=== PATIENT | female | born 1945 | race Caucasian/White ===

== ENCOUNTER 2016-08-29 13:42 | Inpatient (IN) ==
[2016-08-29] MEDS ORDERED: NS 1,000 ML ONE (14:09)
[2016-08-29] MEDS ORDERED: NS 1,000 ML IV ONE ×2 (14:09→16:16)
[2016-08-29 14:44] LABS: URINE CULTURE NEEDED? NO; URINE MICRO REVIEW NEEDED? NO; URINE SOURCE CATH
[2016-08-29 14:44] LABS: MANUAL DIFF NEEDED? NO
[2016-08-29 14:54] LABS: BASO% 1.6 % (0.0-0.8); EOS% 7.8 % (0.0-10.0); HEMOGLOBIN 9.9 g/dL (12.0-16.0); LYMPH# 1.96 X1000 (1.2-3.4); LYMPH% 50.6 % (20.5-51.1); MCH 31.8 PG (27-31); MCHC 31.9 g/dL (33-37); MCV 99.7 FL (81-99); MONO# 0.42 X1000 (0.11-0.59); MONO% 10.9 % (1.7-9.3); NEUT% 29.1 % (42.2-75.2); PLT 142 X1000 (130-400); RBC 3.11 XMIL (4.2-5.4)
[2016-08-29 14:59] LABS: BILIRUBIN URINE NEGATIVE (NEGATIVE); BLOOD URINE NEGATIVE (NEGATIVE); COLOR YELLOW; GLUCOSE URINE NEGATIVE (NEGATIVE); LEUKOCYTES URINE NEGATIVE (NEGATIVE); NITRITE URINE NEGATIVE (NEGATIVE); PROTEIN URINE NEGATIVE (NEGATIVE); SP GRAVITY URINE 1.011; TURBIDITY URINE CLEAR (CLEAR); UROBILINOGEN URINE NORMAL (NORMAL)
[2016-08-29 15:01] LABS: UR EPITHELIAL CELLS <10 /HPF (<10); URINE BACTERIA NEGATIVE /HPF; URINE RBC <10 /HPF (<10); URINE WBC <10 /HPF (<10)
[2016-08-29] MEDS ORDERED: ATROPINE IV ONE (15:17)
[2016-08-29 15:27] LABS: UR AMPHETAMINES QUAL NONE DETECTED (NONE DETECT); UR BARBITUATES QUAL NONE DETECTED (NONE DETECT); UR BENZODIAZEPIN QUAL PRESUMPTIVE POSITIVE (NONE DETECT); UR CANNABINOIDS QUAL NONE DETECTED (NONE DETECT); UR COCAINE QUAL NONE DETECTED (NONE DETECT); UR METHADONE QUAL NONE DETECTED (NONE DETECT); UR OPIATES QUAL PRESUMPTIVE POSITIVE (NONE DETECT); UR OXYCODONE QUAL NONE DETECTED (NONE DETECT); UR PCP QUAL NONE DETECTED (NONE DETECT)
[2016-08-29] MEDS ORDERED: ATROPINE SYRINGE IV ONE (15:27)
[2016-08-29 15:35] LABS: CALCIUM 8.5 mg/dL (8.8-10.2); POTASSIUM 4.1 mmol/L (3.5-5.1); TOTAL BILIRUBIN 0.17 mg/dL (0.20-1.00); TOTAL PROTEIN 5.8 g/dL (6.3-8.3)
--- NOTE | 2016-08-29 16:52 | Diag Imaging Result Doc PS360 ---
EXAM: CT ABD/PELVIS W/ IV CONT ONLY HISTORY: back pAIN, HYPOTENSION TECHNIQUE: CT of the abdomen with intravenous contrast at 1 mm slices with parasagittal reconstruction COMMENT: There Is atelectatic change versus fibrosis in both lung bases. This appears slightly worse than on 01/25/2016. There is no evidence of abdominal aortic aneurysm. There are postsurgical changes in the lower lumbar spine and the pedicle screws produce some beam hardening artifact obscuring detail in the aorta however the mesenteric and renal arteries appear to be patent. There is a 1 mm calculus in the lower pole of the right kidney. There is some fullness the collecting systems bilaterally but more so on the right than the left. There is no evidence of ureterolithiasis. The urinary bladder is slightly distended. There is fluid in the small bowel and colon particularly the ascending colon where there is also fecal debris. There has apparently been previous appendectomy. There is also been previous cholecystectomy. The spleen and adrenal glands are within normal limits. There is no definite abnormality in the pancreas. Small bowel is not distended. CT of the pelvis with intravenous contrast: There is been hysterectomy. There is no evidence of free fluid masses or significant adenopathy. There is some diverticulosis in the sigmoid colon without evidence of diverticulitis. IMPRESSION: 1. Possibility of enterocolitis cannot be excluded. 2. Urinary retention in the bladder with some mild hydronephrosis bilaterally. 3. Minimal right nephrolithiasis. Electronically signed by Jordan Rosenthal 08/29/2016 4:50 PM
--- NOTE | 2016-08-29 17:09 | PROVIDER DOCUMENTATION ---
This chart was entered by Justina Mora Scribe, acting as scribe for Jimmy Moya MD. HPI-Musculoskeletal Pain/Inj - GENERAL Chief Complaint: Back Pain Stated Complaint: BACK PAIN Time Seen by Provider: 08/29/16 13:52 Source: patient - HX OF PRESENT ILLNESS-MUSKULOSKELTAL Nature of Presenting Problem: 71 Y/O F presents to the ER with the complain of lower back pain. pt states that she had back surgery in 2013 and since than her back is hurting. pt states that pain radiates to R leg and the pain is been worse since last 2 months. pt states that in from several days she has hard times standing and his morning she could not get out from bed so she came ER. pt denies any trauma or any fall that caused her pain. Onset/Duration: 5 days ago Timing: still present - FALL INJURY Location of Pain/Injury: reports: back Pain Radiation: reports: other (R leg) Review of Systems - Adult - REVIEW OF SYSTEMS - ADULT Constitutional: reports: no symptoms reported Eyes: reports: no symptoms reported Ears, Nose, Mouth & Throat: reports: no symptoms reported Cardiovascular: reports: no symptoms reported Respiratory: reports: no symptoms reported Gastrointestinal: reports: no symptoms reported Genitourinary: reports: no symptoms reported Musculoskeletal: reports: back pain. denies: joint pain, neck pain Integumentary: reports: no symptoms reported Neurological: reports: no symptoms reported Psychiatric: reports: no symptoms reported Endocrine: reports: no symptoms reported Hematologic/Lymphatic: reports: no symptoms reported Allergic/Immunologic: reports: no symptoms reported All Other Systems: Reviewed and Negative Past History - Adult - PAST MEDICAL HISTORY-ADULT Review of Records: reports: Old Records Reviewed, Nursing Assessment Review Major Childhood Illnesses: reports: denies history Cardiovascular: reports: HTN, heart valve problem (MVP), hyperlipidemia Respiratory: reports: denies history Gastrointestinal: reports: GERD Obstetrical/Gynecological: reports: denies history Genitourinary: reports: denies history Musculoskeletal: reports: chronic pain, fibromyalgia, neck/back injury, other ( scoliosis) Neurological: reports: denies history Psychiatric: reports: anxiety, depression Endocrine/Immune: reports: denies history Other Conditions: reports: denies history - PRIOR SURGERIES/PROCEDURES Surgical/Procedure History: reports: appendectomy, cholecystectomy, hysterectomy , orthopedic (extremity) (right shoulder ), back/neck (neck fusion and back Sx) , other (carpel tunnel; ) - PRIOR HOSPITALIZATIONS Prior Hospitalizations: reports: for other non-related - IMMUNIZATION STATUS Childhood Immunizations: See Nurse Assessment Flu Vaccine: See Nurse Assessment - FAMILY HISTORY Family History: reviewed, not pertinent Physical Exam-Injury Related - Physical Exam-Injury Related Initial Vital Signs Reviewed: Yes General Appearance: appears well, alert Eyes: PERRL/EOMI, pink conjunctivae Head, Ears, Nose, Mouth & Throat: moist mucous membranes, normal ENT inspection Neck: non-tender, full range of motion, supple Respiratory: no pleuratic chest pain, no respiratory distress Cardiovascular: normal peripheral pulses, regular rate, rhythm Abdominal Exam: soft, tenderness (RLQ and pelvis) Back Exam: no CVA tenderness, other (lower back pain) Extremity: other (R leg pain). negative: swelling Integumentary: normal color, warm/dry Neurologic: grossly normal, no motor/sensory deficits Psych/Mental Status: normal mood/affect, normal thought content, normal thought process, oriented x 3 Progress - PLAN OF CARE/RESULTS Progress/Plan/Lab Results: Vital Signs - 8 hr 08/29/16 13:46 08/29/16 14:08 08/29/16 14:32 Temperature 98.1 F Pulse Rate 53 L 52 L 71 Respiratory Rate 18 20 19 Blood Pressure 65/45 80/54 105/59 O2 Sat by Pulse Oximetry 94 L 94 L 92 L 08/29/16 15:43 08/29/16 16:55 Temperature Pulse Rate 69 67 Respiratory Rate 15 14 Blood Pressure 146/67 179/83 O2 Sat by Pulse Oximetry 97 98 Laboratory Results - last 24 hr 08/29/16 08/29/16 08/29/16 14:27 14:27 14:27 WBC 3.87 L RBC 3.11 L Hgb 9.9 L Hct 31.0 L MCV 99.7 H MCH 31.8 H MCHC 31.9 L RDW Std Deviation 13.2 Plt Count 142 MPV 11.0 H Immature Gran % (Auto) 0.0 Neut % (Auto) 29.1 L Lymph % (Auto) 50.6 Bay % (Auto) 10.9 H Eos % (Auto) 7.8 Baso % (Auto) 1.6 H Immature Gran # (Auto) 0.00 Neut # (Auto) 1.13 L Lymph # (Auto) 1.96 Bay # (Auto) 0.42 Eos # (Auto) 0.30 Baso # (Auto) 0.06 ESR 21 H Sodium 137 Potassium 4.1 Chloride 104 Carbon Dioxide 24 L Anion Gap 9 BUN 11 Creatinine 1.3 H Estimated GFR/1.73 m2 40 BUN/Creatinine Ratio 8 Glucose 109 H Calculated Osmolality 274 Calcium 8.5 L Total Bilirubin 0.17 L AST 47 H ALT 37 H Alkaline Phosphatase 77 Total Protein 5.8 L Albumin 3.0 L Globulin 2.8 Albumin/Globulin Ratio 1.1 Urine Source Urine Color Urine Turbidity Urine pH Ur Specific [place] Urine Protein Ur Glucose (Stick) Ur Ketones (Stick) Urine Blood Urine Nitrite Urine Bilirubin Urobilinogen Dipstick Urine Leukocytes Urine WBC (Auto) Urine RBC (Auto) U Epithel Cells (Auto) Urine Bacteria (Auto) Urine Opiates Screen Ur Oxycodone Screen Ur Methadone, Qual Ur Barbiturates Screen Ur Phencyclidine Scrn Ur Amphetamines Screen U Benzodiazepines Scrn Urine Cocaine Screen U Cannabinoids Screen 08/29/16 08/29/16 14:36 14:36 WBC RBC Hgb Hct MCV MCH MCHC RDW Std Deviation Plt Count MPV Immature Gran % (Auto) Neut % (Auto) Lymph % (Auto) Bay % (Auto) Eos % (Auto) Baso % (Auto) Immature Gran # (Auto) Neut # (Auto) Lymph # (Auto) Bay # (Auto) Eos # (Auto) Baso # (Auto) ESR Sodium Potassium Chloride Carbon Dioxide Anion Gap BUN Creatinine Estimated GFR/1.73 m2 BUN/Creatinine Ratio Glucose Calculated Osmolality Calcium Total Bilirubin AST ALT Alkaline Phosphatase Total Protein Albumin Globulin Albumin/Globulin Ratio Urine Source CATH Urine Color YELLOW Urine Turbidity CLEAR Urine pH 6.0 Ur Specific [place] 1.011 Urine Protein NEGATIVE Ur Glucose (Stick) NEGATIVE Ur Ketones (Stick) NEGATIVE Urine Blood NEGATIVE Urine Nitrite NEGATIVE Urine Bilirubin NEGATIVE Urobilinogen Dipstick NORMAL Urine Leukocytes NEGATIVE Urine WBC (Auto) <10 Urine RBC (Auto) <10 U Epithel Cells (Auto) <10 Urine Bacteria (Auto) NEGATIVE Urine Opiates Screen PRESUMPTIVE POSITIVE A Ur Oxycodone Screen NONE DETECTED Ur Methadone, Qual NONE DETECTED Ur Barbiturates Screen NONE DETECTED Ur Phencyclidine Scrn NONE DETECTED Ur Amphetamines Screen NONE DETECTED U Benzodiazepines Scrn PRESUMPTIVE POSITIVE A Urine Cocaine Screen NONE DETECTED U Cannabinoids Screen NONE DETECTED Orders Category Date Time Status Monitor Blood Pressure ORDERED Care 08/29/16 14:[address] ABD/PELVIS W/ IV CONT ONLY [CT] Stat Exams 08/29/16 15:41 Completed CBC WITH DIFF [HEME] Stat Lab 08/29/16 14:27 Completed COMPREHENSIVE METABOLIC PANEL [CHEM] Stat Lab 08/29/16 14:27 Completed SED RATE [HEME] Stat Lab 08/29/16 14:27 Completed URINALYSIS W/POSS RFLX CULT [URINALYSIS] Stat Lab 08/29/16 14:36 Completed URINE DRUG SCREEN Stat Lab 08/29/16 14:36 Completed 0.9% Sodium Chloride Inj [Ns] 1,000 ml Med 08/29/16 14:09 Discontinued .ROUTE As Directed 0.9% Sodium Chloride Inj [Ns] 1,000 ml Med 08/29/16 14:09 Discontinued IV 999 mls/hr 0.9% Sodium Chloride Inj [Ns] 1,000 ml Med 08/29/16 16:16 Active IV 999 mls/hr Atropine Med 08/29/16 15:17 Discontinued 1 mg IV NOW ONE Atropine Syringe Med 08/29/16 15:27 Discontinued 1 mg IV NOW ONE EKG [EKG] Stat Ther 08/29/16 13:51 Ordered Result Diagrams: 08/29/16 14:27 08/29/16 14:27 - EKG 1 Time of EKG reading by physician:: 14:07 EKG Read and Signed by:: Jimmy Moya EKG Interpretation (*Must complete 3 of following elements*): Normal Rate: 53 Rhythm: Sinus Bradycardia Comments: Sinus bradycardia otherwise normal ECG - CT/MRI 1 CT Study: Abdomen, Pelvis Impression: See EMR Report CT Results: possibility of entercolitis cant be exclued,urinary retention in bladder - CONSULTS/PCP/HOSPITALIST Notification #1 *Consult/PCP/Hospitalist*: Ruelas Time Discussed: 17:07 Consult Disposition: Will see in ED, Admit Departure - Departure Date of Disposition Decision: 08/29/16 Time of Disposition Decision: 17:07 DIAGNOSIS: Bradycardia Hypotension Qualifiers: Hypotension type: other hypotension type Qualified Code(s): I95.89 - Other hypotension Disposition: ADMITTED INPATIENT 09 Certified Medical Emergency: Emergent Condition: Good Referrals and Follow-Ups: Kerrie Cavazos CRNP [Primary Care Provider] - - Critical Care Note This patient required my direct & personal management of CC.: No This chart was documented by the indicated scribe, (Justina Mora Scribe) and accurately reflects the services I performed and decisions made by me, Jimmy Moya MD, as attested by the provider's signature.
--- NOTE | 2016-08-29 18:50 | HISTORY AND PHYSICAL ---
PRIMARY CARE PHYSICIAN: Dr. Rohith aKn. PAIN SPECIALIST: Dr. Thompson. CHIEF COMPLAINT: Lower back pain. HISTORY OF PRESENT ILLNESS: Mrs. Greenwood is a 71-year-old female with a history of chronic pain on chronic narcotic therapy, fibromyalgia, seizure disorder, and depression /anxiety, who presents to the ER with worsening back pain over the past few days. She has chronic pain and states that this is an exacerbation of that pain. It is unrelieved with her home narcotic therapy and she came to the ER today for evaluation. She denies any loss of bowel or bladder function. She denies any lower extremity numbness, tingling, or paralysis. She denies any abdominal pain, nausea, vomiting, diarrhea, no fever, chills, cough, or congestion. She came to the ER for evaluation and she was noted to be hypotensive and bradycardic. Initial blood pressure was 65/45 with a heart rate of 53. She was given some atropine and had a CT of the abdomen and pelvis done to rule out dissection. The CT report of the possibility of enteral colitis could not be excluded. There was urinary retention in the bladder with some mild hydronephrosis and minimal right nephrolithiasis. Her lab data shows some anemia, elevated LFTs, mild renal insufficiency, and some protein calorie malnutrition. UA did not show anything acute, and toxicology was positive for opiates and benzodiazepines. Since the administration of atropine and fluids her blood pressure has responded adequately and currently she is actually hypertensive with a blood pressure of 178/104, and a heart rate of 74. The physical exam does not reveal any neurologic deficits. Abdomen and pelvis is soft, without any acute findings. However, given her bradycardia and hypotension, we are going to bring her into the hospital and evaluate her more closely. PAST MEDICAL HISTORY: 1. Fibromyalgia. 2. Chronic back pain on narcotic therapy. 3. Depression and anxiety. 4. GERD. 5. Arthritis. 6. Seizure disorder. 7. History of psychosis. 8. History of pancreatitis. SURGICAL HISTORY: She had an appendectomy, cholecystectomy, hysterectomy, right shoulder surgery, lumbar and cervical spine surgery, carpal tunnel release. SOCIAL HISTORY: The patient lives at home with her grandchild whom she is raising. She denies any tobacco, alcohol, or drug use. She denies overuse of her medication. She is . FAMILY HISTORY: Father from [place] at 46. Mother from a stroke. ALLERGIES: Butorphanol and pregabalin. HOME MEDICATIONS: Lexapro 20 mg daily. Folic acid 1 mg daily. Neurontin 600 mg p.o. t.i.d., Ulysses 7.5 t.i.d.,Toradol 10 mg every 8 hours as needed, Protonix 20 mg b.i.d., Pravachol 20 mg at bedtime. REVIEW OF SYSTEMS: Fourteen-point review of systems obtained and found to be negative with the exception of the HPI. PHYSICAL EXAMINATION: VITAL SIGNS: Blood pressure is 178/104, heart rate 74, respiratory rate is 17, O2 saturation 96% on 2 L, temperature is 98.1 degrees. GENERAL: This is a somewhat chronically ill-appearing 71-year-old female, lying in hospital bed in no acute distress. NEUROLOGIC: The patient is awake, alert, and oriented. She follows commands without focal deficits. HEENT: Head is atraumatic and normocephalic. Her pupils are equal, round, and reactive to light. Her oral mucosa is dry. Trachea is midline. There is no JVD or carotid bruits. CHEST: Clear to auscultation bilaterally. CV: Regular rate and rhythm. S1-S2 is noted. No murmurs. GI: Soft, nondistended, nontender. Bowel sounds positive. EXTREMITIES: Without edema, clubbing or cyanosis. Pulses are palpable bilaterally. DIAGNOSTIC DATA: CT of the abdomen and pelvis, please see HPI. WBC 3.87, hemoglobin 9.9, hematocrit 31.0, MCV 99.7, platelet count 142,000. Sodium 137, potassium 4.1, chloride 104, CO2 24, anion gap 9, BUN 11, creatinine 1.3, glucose is 109, calcium 8.5, total bilirubin 0.17, AST 47, ALT 37, alkaline phosphatase 77, troponin is negative. Albumin is 3. TSH is 4. UA is negative. Toxicology is positive for benzodiazepines and opiates. ASSESSMENT AND PLAN: 1. Hypotension and bradycardia: Unclear as to the etiology. Patient denies any chest pain, there is no obvious source of infection. While the CT does raise the possibility of enterocolitis, patient denies diarrhea, abdominal pain, nausea, vomiting, or fever. We will hold off on antibiotics for now. Currently her hemodynamics are stable. She is actually a bit hypertensive. We will continue to monitor her overnight and see how she is doing in the morning. We will go ahead and trend her cardiac enzymes. 2. Macrocytic anemia: Iron studies are pending. Will treat accordingly. 3. Acute kidney injury: The patient has some urinary retention with mild hydronephrosis on CT. A Wilburn catheter has been ordered and we may consider a urology consultation but may hold off on this for outpatient, we will re-evaluate her renal fx in the AM. 4. Elevated liver function tests: Patient has a history of this and is actually around baseline for her. Again she denies any abdominal pain, nausea, or vomiting. CT does not show any biliary or pancreatic abnormalities. We are going to check a lipase and amylase given her history of pancreatitis and will monitor. 5. Anxiety and depression: We will continue her home medications. This is stable. 6. Chronic pain. Will continue her oral medications and will be judicious given her hypotension. 7. Lumbago: Patient has no focal deficits of her lower extremities. We will have her follow up with her primary care physician on this. 8. Deep venous thrombosis prophylaxis will be provided with Lovenox. 9. Further recommendations to follow. Dictated by SCARLETT Crawford for Adán Hugo MD cc: SCARLETT Crawford MD MTDD
[2016-08-29] MEDS ORDERED: NEURONTIN PO PRN (19:22)
[2016-08-29] MEDS: NORCO-7.5 PO PRN (21:26)
[2016-08-29] MEDS: PRILOSEC PO SCH (21:26)
[2016-08-29] MEDS: LOVENOX SUBQ SCH (21:27)
[2016-08-30 06:35] LABS: HEMATOCRIT 35.9 % (37.0-47.0); HEMOGLOBIN 11.5 g/dL (12.0-16.0); MPV 10.8 FL (7.4-10.4); RBC 3.59 XMIL (4.2-5.4)
[2016-08-30 07:02] LABS: CALCIUM 8.5 mg/dL (8.8-10.2); POTASSIUM 4.4 mmol/L (3.5-5.1)
[2016-08-30 07:13] LABS: FERRITIN 48 ng/mL (13-150)
[2016-08-30 07:59] VITALS: BP 149/82
[2016-08-30] MEDS ORDERED: LEXAPRO PO SCH (09:00)
[2016-08-30] MEDS ORDERED: FOLIC ACID PO SCH (09:00)
[2016-08-30] MEDS: PRILOSEC PO SCH (09:19)
[2016-08-30] MEDS: LOVENOX SUBQ SCH (09:19)
[2016-08-30] MEDS: NORCO-7.5 PO PRN (09:21)
[2016-08-30 09:33] LABS: CK INDEX 1.2 (0.0-2.5); CK-MB 27.58 ng/mL (0.0-5.0)
[2016-08-30] MEDS ORDERED: SOLU-MEDROL IV ONE (11:39)
--- NOTE | 2016-08-31 05:55 | EKG Report ---
Test Performed on : 08/29/2016 2:07:48 PM Test Reason : dizzy Blood Pressure : / mmHG Vent. Rate : 053 BPM Atrial Rate : 053 BPM P-R Int : 146 ms QRS Dur : 094 ms QT Int : 506 ms P-R-T Axes : 057 031 059 degrees QTc Int : 474 ms Sinus bradycardia. Otherwise normal ECG When compared with ECG of 25-JAN-2016 12:47, No significant change was found Unconfirmed Result
--- NOTE | 2016-08-31 14:04 | DISCHARGE SUMMARY ---
ADMISSION DATE: 08/29/2016 DISCHARGE DATE: 08/30/2016 DISCHARGE DIAGNOSES: 1. Hypotension and bradycardia/resolve 2. Microcytic anemia. 3. Acute kidney injury. 4. Elevated liver function tests. 5. Anxiety. 6. Chronic pain. HOSPITAL COURSE: A 71-year-old, female with a past medical history of chronic narcotic therapy for fibromyalgia, seizure disorder, depression/anxiety, who presented to the emergency department with worsening of back pain over the past few days. She has chronic pain and states that she is in an exacerbation of that pain. She denies any loss of bowel or bladder function. She denies any lower extremity numbness, tingling or paralyses. No abdominal pain. No fever. No chills. When she presented to the ER for evaluation she was noted to be hypotensive and bradycardic. The initial blood pressure was 65/45 and heart rate 53. She was given some atropine and had a CT of the abdomen and pelvis to rule out dissection. Toxicology was positive for opiates and benzodiazepines. She received also IV fluids and she responded to that treatment. At the moment of admission actually she was hypertensive and the heart rate was 74. We kept this patient overnight, no source of infection and this patient was doing much better the next day, but she still was complaining of her chronic back pain. She states that her pain doctor will see her next on 09/14/2016 but she needs medication until then [place] 7.5. I decided to discharge this patient with a followup by her primary care doctor and her pain doctor. At the moment of discharge, this patient was doing much better. She is tolerating p.o. No bradycardia and not hypertensive. OBJECTIVE: Vital Signs: Temperature 97.7 degrees, pulse 73, respiratory rate 20, blood pressure 149/82, O2 saturation 93 on room air. HEENT: Normocephalic. No trauma. PERRLA. Neck: Supple. No JVD. No masses. Central trachea. Chest: Clear to auscultation. No wheezing. No rales. Abdomen: Soft, nontender, nondistended. No hepatosplenomegaly. Back: Painful to palpation with mobilization of the lower extremities and to palpation as well. Extremities: No edema. No clubbing. No cyanosis. Neurological: The patient is alert and oriented x3. No focal deficits. LABORATORY: WBC 4.7, hemoglobin 11.5, hematocrit 35.9, platelet 172,000. Sodium 142, potassium 4.4, chloride 107, bicarbonate 25, BUN 11, creatinine 1.1, glucose 96, calcium 8.5. FOLLOWUP: Follow up by her primary care doctor in 1 week and follow up by her pain doctor on the of this month. DISCHARGE MEDICATIONS: Folic acid 1 mg p.o. daily. Lexapro 20 mg p.o. daily. Protonix 20 mg p.o. b.i.d. Pravastatin 20 mg p.o. at bedtime. Gabapentin 300 mg p.o. t.i.d. p.r.n. and [place] 7.5 p.o. t.i.d. p.r.n. pain. TIME SPENT AT DISCHARGE: Thirty-five minutes. cc: Adán Hugo MD
== END 2016-08-30 12:52 | disposition home or self-care (01) ==
LOC: ED 13:42 → 3N 19:01
PROVIDERS: ATTEND Internal Medicine

== ENCOUNTER 2018-09-07 14:36 | Inpatient (IN) ==
[2018-09-07] MEDS ORDERED: ATIVAN IM ONE (15:40)
--- NOTE | 2018-09-07 16:15 | Diag Imaging Result Doc PS360 ---
EXAM: WRIST COMPLETE LEFT 09/07/2018 HISTORY: FALL/WRIST PAIN TECHNIQUE: Left wrist three views COMMENT: There are degenerative changes in the first metacarpocarpal joints. There is no evidence of fracture or dislocation. There is some narrowing between the trapezium and trapezoid and the scaphoid. IMPRESSION: Osteoarthritis. Electronically signed by Jordan Rosenthal 09/07/2018 4:12 PM
[2018-09-07 16:56] LABS: BASO# 0.03 X1000 (0.0-0.2); BASO% 0.3 % (0.0-0.8); EOS# 0.02 X1000 (0.0-0.7); EOS% 0.2 % (0.0-10.0); HEMATOCRIT 38.9 % (37.0-47.0); HEMOGLOBIN 12.8 g/dL (12.0-16.0); IMM GRAN# 0.02 X1000 (0.0-0.04); IMM GRAN% 0.2 % (0.0-0.5); LYMPH# 1.62 X1000 (1.2-3.4); LYMPH% 16.1 % (20.5-51.1); MCH 31.6 PG (27-31); MCHC 32.9 g/dL (33-37); MONO# 0.85 X1000 (0.11-0.59); MONO% 8.4 % (1.7-9.3); MPV 10.8 FL (7.4-10.4); NEUT# 7.53 X1000 (1.4-6.5); NEUT% 74.8 % (42.2-75.2); PLT 222 X1000 (130-400); RBC 4.05 XMIL (4.2-5.4); RDW 13.1 % (11.5-14.5); WBC 10.07 X1000 (4.8-10.8)
[2018-09-07 17:25] LABS: ALB/GLOB RATIO 1.3; CREATININE 1.2 mg/dL (0.5-0.9); POTASSIUM 3.7 mmol/L (3.5-5.1); TOTAL BILIRUBIN 0.33 mg/dL (0.20-1.00); TOTAL PROTEIN 7.2 g/dL (6.3-8.3)
--- NOTE | 2018-09-07 17:51 | Diag Imaging Result Doc PS360 ---
EXAM: CT HEAD/C-SPINE W/O CONTRAST 09/07/2018 HISTORY: head injury/pain TECHNIQUE: This exam was performed using automated exposure control, adjustment of mA or kV according to patient size, and/or use of iterative reconstruction technique. COMMENT: The current examination is compared with the previous study of 05/02/2018. There are patchy lucencies present in the periventricular white matter of both hemispheres. Compared to the previous study the appearance the brain has not changed significantly. The visualized paranasal sinuses are clear. The calvarium is intact. Cervical spine: There are bone grafts at the disc spaces at C5-6 and C6-7 there is an anterior plate at C6-7. There is mild anterolisthesis of C4 on C5 which was also present at the time the previous study of 05/02/2018. There is no evidence of prevertebral soft tissue swelling. The facets are aligned. The C4-5 facet is fused on the right side. There is facet arthropathy present at C7-T1 on the left. Overall the appearance of the cervical spine has not changed significantly. IMPRESSION: 1. No evidence of acute intracranial disease. Chronic microvascular white matter disease. 2. Postsurgical and degenerative changes stable since 05/02/2018 and the cervical spine. Electronically signed by Jordan Rosenthal 09/07/2018 5:49 PM
[2018-09-07 18:14] LABS: URINE SOURCE CATH
[2018-09-07 18:18] LABS: BILIRUBIN URINE NEGATIVE (NEGATIVE); BLOOD URINE NEGATIVE (NEGATIVE); CLARITY CLEAR (CLEAR); COLOR YELLOW; GLUCOSE URINE NEGATIVE (NEGATIVE); KETONE URINE 15 mg/dL (NEGATIVE); LEUKOCYTES URINE NEGATIVE (NEGATIVE); NITRITE URINE NEGATIVE (NEGATIVE); PROTEIN URINE TRACE mg/dL (NEGATIVE); SP GRAVITY URINE >= 1.030; UROBILINOGEN URINE 0.2 EU/dL (0.2-1.0)
[2018-09-07 18:19] LABS: URINE BACTERIA NEGATIVE /HFP; URINE CRYSTAL CA OXALATE PRESENT /HPF; URINE EPITHELIAL CELLS <10 /HPF (<10); URINE RBC <10 /HPF (<10); URINE WBC <10 /HPF (<10)
[2018-09-07 18:43] LABS: UR AMPHETAMINES QUAL NONE DETECTED (NONE DETECT); UR BARBITUATES QUAL NONE DETECTED (NONE DETECT); UR BENZODIAZEPIN QUAL PRESUMPTIVE POSITIVE (NONE DETECT); UR CANNABINOIDS QUAL NONE DETECTED (NONE DETECT); UR COCAINE QUAL NONE DETECTED (NONE DETECT); UR METHADONE QUAL PRESUMPTIVE POSITIVE (NONE DETECT); UR OPIATES QUAL NONE DETECTED (NONE DETECT); UR OXYCODONE QUAL NONE DETECTED (NONE DETECT); UR PCP QUAL NONE DETECTED (NONE DETECT)
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
[2018-09-07] MEDS ORDERED: NS 1,000 ML IV ONE (22:39)
--- NOTE | 2018-09-07 23:31 | HISTORY AND PHYSICAL ---
PRIMARY CARE PHYSICIAN: None. REASON FOR ADMISSION: Acute confusion today. HISTORY OF PRESENT ILLNESS: Ms. Katt Greenwood is a 73-year-old woman with past medical history of hypertension, hyperlipidemia, chronic low back pain problems, and history of substance-induced mood disorders. She was brought in today by her family, who noted that she was very agitated, highly animated, and confused. On arrival to the ER, she was screaming, wandering the floors, and had to be restrained, and became very combative and was given 2 mg of Ativan IM, which has since put her into a deep state of sleep. Unfortunately, no family members at bedside. The family does report that this is the first time she has done this. The nurse at bedside denies any diarrhea so far. REVIEW OF SYSTEMS: Could not be obtained for obvious reasons. ALLERGIES: Butorphanol and Lyrica. HOME MEDICATIONS: Have not been reconciled. The patient's urine drug screen, however, was positive for methadone, which according to the family, she is not supposed to be taking, and benzodiazepines. LABORATORY AND DIAGNOSTIC DATA: Other lab work is notable for the following: White count is 10,000, hemoglobin and hematocrit 12 and 38, platelets 222,000, with normal differential. BUN is 13, creatinine is 1.2, glucose 111. Urinalysis shows a specific gravity greater than 1.030, pH 6. She has calcium oxalate crystals in urine. Head CT, no evidence of acute intracranial disease. Chronic microvascular white matter changes noted and postsurgical changes in the cervical spine. Wrist x-ray just shows osteoarthritis. FAMILY HISTORY: Notable for coronary artery disease and stroke. PAST SURGICAL HISTORY: She has had lumbar and cervical spine surgeries, right shoulder surgery, hysterectomy, cholecystectomy, appendectomy, and carpal tunnel release. SOCIAL HISTORY: Could not be obtained, but it is believed that the patient's, per her old records, lives alone by herself and her son lives next door to her. PHYSICAL EXAMINATION: VITAL SIGNS: Blood pressure 131/80, heart rate 83, respirations 21, temperature is 98.6 degrees, 97% on room air. GENERAL: Elderly woman who is very somnolent secondary to sedation. HEENT: Head is normocephalic, atraumatic. Eyes are miotic, but slightly reactive to light. No nystagmus noted. Anicteric and not pale. ENT and oropharynx exam could not be evaluated as patient is sedated, but there are no visual signs of central cyanosis. NECK: Supple. No JVD or carotid bruit. CHEST: Clear when auscultated with air entry in both lung dean. CARDIOVASCULAR: First and second heart sounds heard. No gallops, murmurs, rubs. Rhythm is regular. ABDOMEN: Full, soft, with no tenderness elicited, i.e., no grimacing on deep palpation. No mass or organomegaly. Bowel sounds are hypoactive. RECTAL EXAM: Deferred at this time. EXTREMITIES: Pulses distally intact. Rhythm is regular. NEUROLOGICAL EXAM: Could not be fully assessed, but visually patient is moving all extremities spontaneously. SKIN: Intact. Mildly decreased skin turgor. MUSCULOSKELETAL EXAM: Grossly normal. ASSESSMENT: 1. Toxic encephalopathy possibly from illicit drug use, i.e., methadone. 2. Dehydration. 3. Hypertension. 4. Hyperlipidemia. PLAN: Patient will be admitted for IV fluid resuscitation to correct for intravascular deficits and hopefully improve excretion of illicit substances. Will administer supportive measures and observe her in the ICU. Will monitor patient for withdrawals. Hopefully, with close monitoring, IV fluid resuscitation, and p.r.n. sedation as patient was agitated and combative, however, patient may make a turn around in the next 24 to 48 hours. At which point in time, she will need to be questioned as to what events led to her demise from a cognitive standpoint. cc: Zita Cabrera MD
[2018-09-08] MEDS ORDERED: ZOFRAN IV PRN (00:02)
[2018-09-08] MEDS ORDERED: NS 1,000 ML IV SCH (00:02)
[2018-09-08] MEDS: ATIVAN IV PRN ×4 (01:00→07:50)
[2018-09-08] MEDS: LOVENOX SUBQ SCH (01:03)
[2018-09-08 08:06] LABS: BASO# 0.02 X1000 (0.0-0.2); BASO% 0.3 % (0.0-0.8); EOS# 0.11 X1000 (0.0-0.7); EOS% 1.8 % (0.0-10.0); HEMATOCRIT 37.4 % (37.0-47.0); HEMOGLOBIN 11.8 g/dL (12.0-16.0); LYMPH# 2.17 X1000 (1.2-3.4); LYMPH% 34.8 % (20.5-51.1); MCH 31.1 PG (27-31); MCHC 31.6 g/dL (33-37); MCV 98.7 FL (81-99); MONO# 0.65 X1000 (0.11-0.59); MONO% 10.4 % (1.7-9.3); NEUT# 3.28 X1000 (1.4-6.5); NEUT% 52.7 % (42.2-75.2); PLT 185 X1000 (130-400); RBC 3.79 XMIL (4.2-5.4); RDW 13.5 % (11.5-14.5); WBC 6.23 X1000 (4.8-10.8)
[2018-09-08 08:36] LABS: ALB/GLOB RATIO 1.3; ALBUMIN 3.7 g/dL (3.5-5.0); CALCIUM 8.7 mg/dL (8.8-10.2); POTASSIUM 3.4 mmol/L (3.5-5.1); TOTAL BILIRUBIN 0.43 mg/dL (0.20-1.00); TOTAL PROTEIN 6.6 g/dL (6.3-8.3)
[2018-09-08] MEDS ORDERED: LABETALOL IV PRN (09:40)
[2018-09-08] MEDS: NS 1,000 ML IV SCH ×2 (10:08→21:21)
[2018-09-08] MEDS ORDERED: GEODON ONE (11:50)
[2018-09-08] MEDS ORDERED: STERILE WATER INJ. ONE (11:52)
[2018-09-08] MEDS: GEODON IM PRN ×3 (11:55→22:40)
[2018-09-08] MEDS: STERILE WATER INJ. INJ PRN ×2 (11:55→22:41)
--- NOTE | 2018-09-08 17:55 | CONSULTATION ---
DATE OF CONSULTATION: 09/08/2018 NEUROLOGY CONSULT: LOCATION: In the emergency department holding bed. Ms. Greenwood is 73 years old, and there is apparent altered mental state. She is not able to provide cogent history. There is no one at the bedside to provide history now. History is taken from review of the hospital record. By report, she was brought by family yesterday with agitation, confusion. She was described as "screaming, wandering the floors" and "very combative" and was treated with lorazepam yesterday. Following that, she slept. Workup includes lab showing creatinine 1.2 and then 1.0, initial blood sugar 113 and later 93, trace proteinuria. Urine drug screen was positive for methadone and for benzodiazepine. I am not certain about her home medicine use. Home medicine list recorded for this admission includes diazepam 5 mg at bedtime. PDMP shows she received diazepam 10 mg, #60 each, filled each of the last several months. She does not have methadone listed. There is report in the history that family stated she should not be taking methadone. Opiates on PDMP include hydrocodone not filled since March 25, oxycodone not filled since March 02, tramadol not filled since March 24. There is not serum alcohol level recorded. She has been afebrile here. Heart rate has ranged 80s to low 100s in the last few hours, but was recorded 110s to 120s on a few occasions earlier. Blood pressures have been 120s to 160s in recent hours. Noncontrast CT is reported to show chronic microvascular white matter changes bilaterally with nothing focal or acute, no bleeding, nothing significantly changed compared to 05/02/[address] of the cervical spine is reported to show postsurgical and degenerative changes which are stable since 05/02/2018 scan. On exam, she is awake and alert. She was intermittently attentive. She followed simple commands consistently. She did not answer any questions regarding orientation correctly. She told me she was not sure about her location, but [place] and she could not tell me the name of this city. Her speech is not significantly dysarthric. Language function is intact on brief testing. There is no meningismus. Head is unremarkable. She has full visual dean tested by confrontational finger counting. Extraocular movements are full. Facial motility is symmetric. Gag is intact. Tongue is midline. She can hear. She used her arms and legs well. Limb tone is symmetric. She has good power in the arms and legs. She reports discomfort mostly in the left forearm, and she guards that a little bit, but still demonstrated good power. She did well on [id number] testing bilaterally. She reports good pinprick appreciation over the hands and feet symmetrically. Proprioception is good at the great toe MTP joint bilaterally. I did not test her gait. Reflexes are 1+ at the ankles and 2+ at the knees bilaterally. Plantar response is flexor bilaterally. She was moving the arms and legs and was not still during my time at the bedside. Features were not typical of chorea. I did not recognize myoclonus, asterixis, tremor, or other specific movement disorder. IMPRESSION: Agitated confusion, delirium, most likely a medication effect. She has had opiate prescriptions in recent months and presented with opiate screen negative. She may have surreptitiously been using methadone, which raises possibility that she may have ingested other substances. Benzodiazepine withdrawal might account for some of her restlessness. I do not know her recent benzodiazepine dosing, but computer data bank shows she has prescribed tablets allowing diazepam 20 mg daily. She might have run out of that recently or stopped the dose or reduced the dose and may still present with benzodiazepine positive in the urine. Another possibility would be benzodiazepine withdrawal seizure with postictal confusion. She has received several doses of lorazepam here. Negative CT is reassuring. She has presented in years past with global encephalopathy attributed to medications and has always recovered spontaneously. I hope that will be the case this time. I do not have any specific suggestion. Depending on her clinical course, we might consider repeat imaging and EEG. If definite home medication list can be ascertained, we might simply resume those doses. Thanks for asking Neurology to see Ms. Greenwood. cc: MD SWEETIE Rouse III
--- NOTE | 2018-09-08 21:11 | PROGRESS NOTE ---
DATE: 09/08/2018 SUBJECTIVE: The patient was noted to be very agitated and confused this morning and could not answer questions appropriately. OBJECTIVE: Vital Signs: Temperature 98.6 degrees, blood pressure 149/85, heart rate 27, respirations 18, O2 saturation 95% on 2 L nasal cannula. General: This is a chronically ill- appearing elderly female lying in bed in no acute distress. Heart: S1, S2 normal. Regular rate and rhythm. Lungs: Equal air entry bilaterally. No crackles. No rales. Abdomen: Positive bowel sounds. Soft, nontender, nondistended. Extremities: No edema. No cyanosis. No calf tenderness. Neurologic: The patient is only oriented to self. She is somewhat agitated. LABS: Hemoglobin 11, hematocrit 37, platelets 185,000. Sodium 143, potassium 3.4, chloride 110, CO2 25, BUN 12, creatinine 1. Hemoglobin A1c 6. ASSESSMENT AND PLAN: 1. Metabolic encephalopathy. The patient's drug tox screen was positive for methadone and benzodiazepines. The patient appears to be on Valium, however, after reviewing the patient's medication list, methadone is not listed as one of the patient's prescription medications. We will continue with IV fluids and monitor the patient's mental status closely. The patient will likely require a psychiatric evaluation. We will also consult with Facility Specialist to investigate the patient's home situation. A transportation services representative from [facility] has already been by the hospital today to interview the patient. 2. Hypertension. We will start the patient on Coreg. 3. Prediabetes. The patient has a hemoglobin A1c of 6. We will monitor the patient's blood sugars and place her on a diabetic diet. 4. Chronic back pain. Aware. 5. Narcotic dependence. The patient may benefit from drug rehab. 6. Deep vein thrombosis prophylaxis. Continue on Lovenox. cc: Gin Harris MD MTDD
[2018-09-08] MEDS: COREG PO SCH (21:22)
[2018-09-08] MEDS: VALIUM PO SCH (21:22)
[2018-09-09] MEDS: LOVENOX SUBQ SCH (00:45)
[2018-09-09 05:58] LABS: HEMATOCRIT 41.5 % (37.0-47.0); HEMOGLOBIN 13.1 g/dL (12.0-16.0); MCH 31.5 PG (27-31); MCHC 31.6 g/dL (33-37); MCV 99.8 FL (81-99); MPV 11.5 FL (7.4-10.4); RBC 4.16 XMIL (4.2-5.4); RDW 13.4 % (11.5-14.5); WBC 5.28 X1000 (4.8-10.8)
[2018-09-09 06:30] LABS: SODIUM 145 mmol/L (136-145)
[2018-09-09 06:31] LABS: AGAP 16; BUN 9 mg/dL (8-22); CALCIUM 9.2 mg/dL (8.8-10.2); CHLORIDE 108 mmol/L (98-107); COSMO 286; CREATININE 0.9 mg/dL (0.5-0.9); ESTIMATED GFR > 60; GLUCOSE 73 mg/dL (70-104); POTASSIUM 3.9 mmol/L (3.5-5.1); TCO2 21 mmol/L (25-35)
[2018-09-09 06:56] LABS: URINE SOURCE CATH
[2018-09-09] MEDS: NS 1,000 ML IV SCH (06:58)
[2018-09-09 06:59] LABS: BILIRUBIN URINE NEGATIVE (NEGATIVE); BLOOD URINE NEGATIVE (NEGATIVE); COLOR STRAW; GLUCOSE URINE NEGATIVE (NEGATIVE); KETONE URINE 10 mg/dL (NEGATIVE); LEUKOCYTES URINE NEGATIVE (NEGATIVE); NITRITE URINE NEGATIVE (NEGATIVE); PROTEIN URINE NEGATIVE (NEGATIVE); SP GRAVITY URINE 1.007; TURBIDITY URINE CLEAR (CLEAR); UROBILINOGEN URINE NORMAL (NORMAL)
[2018-09-09 07:01] LABS: UR EPITHELIAL CELLS <10 /HPF (<10); URINE BACTERIA NEGATIVE /HPF; URINE RBC <10 /HPF (<10); URINE WBC <10 /HPF (<10)
[2018-09-09] MEDS: VALIUM PO SCH ×2 (09:09→20:22)
[2018-09-09] MEDS: COREG PO SCH ×2 (09:10→20:21)
[2018-09-09] MEDS: NORVASC PO SCH ×2 (12:00→20:23)
[2018-09-09] MEDS ORDERED: PRINIVIL PO SCH (12:30)
[2018-09-09] MEDS: TYLENOL PO PRN (16:51)
[2018-09-09] MEDS ORDERED: CARDENE 20 MG/NS 20 MG/200 ML PIGGYBACK IV SCH (18:00)
--- NOTE | 2018-09-09 20:15 | PROGRESS NOTE ---
DATE: 09/09/2018 Ms. Greenwood is awake, alert, attentive. She answered questions more appropriately today. She is oriented, although it took her a few trials with self corrected errors to provide the correct name of the hospital. She did well on bedside testing of language function. Head and neck are unremarkable. There is no meningismus. Limb tone is symmetric. She used her right and left limbs purposefully and equally. She had repeated questions regarding her purse and the contents of her purse. She seems to have some obsessiveness about this. I do not know if there is a baseline problem with obsession, or not. She told me that she had not taken methadone, had not taken Valium in 3 weeks, had not taken any other narcotic and had not using illicit substance. This report is not consistent with the admission urine toxicology. I am pleased to see her recovery. I do not have any new suggestions from Neurology standpoint. I would continue current management and follow clinically. Depending on her clinical course, if she continues to appear altered or not back to baseline, we might consider further workup with EEG and repeat imaging next week. Thanks for asking Neurology to see Ms. Greenwood. cc: MD SWEETIE Rouse III
[2018-09-09] MEDS: APRESOLINE PO SCH (20:20)
[2018-09-09] MEDS: GEODON IM PRN (23:56)
[2018-09-10] MEDS: STERILE WATER INJ. INJ PRN (00:01)
[2018-09-10] MEDS: LOVENOX SUBQ SCH ×2 (00:08→23:06)
[2018-09-10] MEDS: TYLENOL PO PRN (01:50)
--- NOTE | 2018-09-10 03:44 | PROGRESS NOTE ---
DATE: 09/09/2018 SUBJECTIVE: The patient is awake and alert this morning. She states that she feels a lot better. OBJECTIVE: Vital Signs: Temperature 98.6 degrees, blood pressure 155/88, heart rate 98, respirations 18, and O2 saturations 98% on 2 L nasal cannula. General: This is a chronically ill- appearing elderly female lying in bed in no acute distress. Heart: S1, S2 normal. Lungs: Equal air entry bilaterally. No crackles. No rales. Abdomen: Positive bowel sounds. Soft, nontender, and nondistended. Extremities: No edema. No cyanosis. Neurologic: The patient is alert and oriented x3. LABORATORY: Sodium 145, potassium 3.9, chloride 108, CO2 21, BUN 9, creatinine 0.9 and glucose 173. ASSESSMENT AND PLAN: 1. Metabolic encephalopathy. This appears to have resolved. The patient is alert and oriented. We will also consult with Brooklny Rodriguez. 2. Uncontrolled hypertension. We will adjust the patient's antihypertensive regimen. 3. Prediabetes. Continue with Accu-Chek's. 4. Chronic back pain. Aware. 5. Narcotic dependence. The patient likely needs substance abuse treatment. 6. Deep vein thrombosis prophylaxis. Continue on Lovenox. 7. The patient is stable for transfer to the medical floor. cc: Gin Harris MD
[2018-09-10 05:54] LABS: HEMATOCRIT 39.3 % (37.0-47.0); MCH 31.6 PG (27-31); MCHC 33.1 g/dL (33-37); MCV 95.4 FL (81-99); MPV 10.9 FL (7.4-10.4); RBC 4.12 XMIL (4.2-5.4); WBC 6.39 X1000 (4.8-10.8)
[2018-09-10] MEDS: APRESOLINE PO SCH ×3 (06:31→21:02)
[2018-09-10 06:38] LABS: CALCIUM 9.3 mg/dL (8.8-10.2); POTASSIUM 3.6 mmol/L (3.5-5.1)
[2018-09-10] MEDS: HYGROTON PO SCH (09:19)
[2018-09-10] MEDS: COREG PO SCH ×2 (09:20→21:02)
[2018-09-10] MEDS: VALIUM PO SCH ×2 (09:20→21:02)
[2018-09-10] MEDS: PRINIVIL PO SCH (09:20)
[2018-09-10] MEDS: NORVASC PO SCH ×2 (09:20→21:02)
--- NOTE | 2018-09-10 21:17 | PROGRESS NOTE ---
DATE: 09/10/2018 SUBJECTIVE: The patient is resting comfortably. She was noted to be very emotionally labile overnight with outbursts of severe agitation coupled with episodes of crying. OBJECTIVE: Vital Signs: Temperature 98 degrees, blood pressure 146/70, heart rate 92, respirations 16, O2 saturation 97% on room air. General: This is a chronically ill-appearing elderly female lying in bed in no acute distress. Heart: S1, S2 normal. Regular rate and rhythm. Lungs: Clear to auscultation bilaterally. No wheezing. No rales. No rhonchi. Abdomen: Positive bowel sounds. Soft, nontender, nondistended. Extremities: No edema, no cyanosis. Neurologic: The patient is alert and oriented x3. LABS: Reviewed. ASSESSMENT AND PLAN: 1. Metabolic encephalopathy. Resolved. 2. Hypertension. Improved. Continue on the current antihypertensive regimen. 3. Prediabetes. Aware. Continue on a diabetic diet. 4. Chronic back pain. Aware. 5. Narcotic dependence. We will discuss with Special Education Superintendent about resources for the patient to get treatment as outpatient. 6. Depression. Will restart Trintellix. Will consult with [facility]. 7. Deep vein thrombosis prophylaxis. Continue on Lovenox. 8. Will consult physical therapy. cc: Gin Harris MD MTDD
[2018-09-11] MEDS: APRESOLINE PO SCH ×3 (04:37→20:47)
[2018-09-11 08:14] LABS: CALCIUM 9.8 mg/dL (8.8-10.2); POTASSIUM 3.6 mmol/L (3.5-5.1)
[2018-09-11] MEDS: COREG PO SCH ×2 (09:20→20:54)
[2018-09-11] MEDS: PRINIVIL PO SCH (09:20)
[2018-09-11] MEDS: NORVASC PO SCH ×2 (09:20→20:54)
[2018-09-11] MEDS: HYGROTON PO SCH (09:20)
[2018-09-11] MEDS: VALIUM PO SCH ×2 (09:20→20:54)
[2018-09-11] MEDS: TYLENOL PO PRN ×2 (14:53→20:54)
--- NOTE | 2018-09-11 15:34 | PROGRESS NOTE ---
DATE: 09/11/2018 SUBJECTIVE: The patient is resting comfortably. He has no complaints at time. OBJECTIVE: Vital Signs: Temperature 97.9 degrees, blood pressure 92/60, heart rate 98, respirations 18, O2 saturations 98% on room air. General: This is an elderly female lying in bed in no acute distress. Heart: S1, S2 normal. Regular rate and rhythm. Lungs: Equal air entry bilaterally. No crackles. No rales. Abdomen: Positive bowel sounds. Soft, nontender, nondistended. Extremities: No edema, no cyanosis. Neurologic: The patient is alert and oriented x4. LABORATORY STUDIES: Sodium 140, potassium 3.6, chloride 104, CO2 17, BUN 20, creatinine 1, glucose 130. ASSESSMENT AND PLAN: 1. Metabolic encephalopathy. Resolved. 2. Depression. Aware. The patient says she is followed by Dr. Rondon. 3. Anxiety disorder. Continue on Valium. 4. Prediabetes. Aware. Continue on diabetic diet. The patient has been counseled about weight loss and proper diet. 5. Hypertension. Stable. 6. Chronic back pain. Aware. 7. Narcotic dependence. Will consult with Instrument Person to assist the patient with outpatient therapy. 8. Deep vein thrombosis prophylaxis. Continue on Lovenox. 9. Continue with physical therapy. The patient would benefit from a [facility] assessment. cc: Gin Harris MD MTDD
[2018-09-12] MEDS: APRESOLINE PO SCH (04:12)
[2018-09-12] MEDS: LOVENOX SUBQ SCH (06:10)
[2018-09-12 07:41] LABS: HEMATOCRIT 40.1 % (37.0-47.0); HEMOGLOBIN 13.2 g/dL (12.0-16.0); MCH 31.8 PG (27-31); MCHC 32.9 g/dL (33-37); MCV 96.6 FL (81-99); MPV 11.2 FL (7.4-10.4); RBC 4.15 XMIL (4.2-5.4); RDW 13.3 % (11.5-14.5); WBC 4.95 X1000 (4.8-10.8)
[2018-09-12 07:56] LABS: CALCIUM 8.7 mg/dL (8.8-10.2); CREATININE 1.2 mg/dL (0.5-0.9); POTASSIUM 3.4 mmol/L (3.5-5.1)
[2018-09-12] MEDS ORDERED: NS 1,000 ML IV SCH (08:45)
[2018-09-12] MEDS ORDERED: TRINTELLIX PO SCH (09:00)
--- NOTE | 2018-09-12 10:15 | PROGRESS NOTE ---
DATE: 09/12/2018 Ms. Greenwood is awake, alert, attentive. She answered questions appropriately. She seems much more calm and less obsessed today. She missed the day of the month by 1 and otherwise is completely oriented. There is no focal motor deficit on very brief bedside testing. Neck is supple. IMPRESSION: Global encephalopathy on presentation, appears to be resolved now. I do not know her baseline, but I believe she is at or near that. I do not see evidence of any primary central nervous system problem now. I do not have any new suggestion for neurologic workup today. Thanks for asking neurology to see Ms. Greenwood. cc: Yonny Mas III, MD MTDD
[2018-09-12] MEDS ORDERED: KLOR-CON PO ONE (10:42)
[2018-09-12] MEDS: VALIUM PO SCH (12:02)
[2018-09-12] MEDS: NORVASC PO SCH (12:03)
[2018-09-12 15:07] VITALS: BP 102/57
--- NOTE | 2018-09-17 15:42 | DISCHARGE SUMMARY ---
ADMISSION DATE: 09/07/2018 DISCHARGE DATE: 09/12/2018 FINAL DISCHARGE DIAGNOSES: 1. Metabolic encephalopathy. 2. Narcotic dependence. 3. Depression. 4. Anxiety disorder. 5. Prediabetes. 6. Hypertension. 7. Chronic back pain. HOSPITAL COURSE: Ms. Greenwood is a 73-year-old female with a history of anxiety disorder, depression, and hypertension, who was brought to the ER after she was noted to be confused at home. On admission, the patient was only oriented to self. Drug tox screen revealed methadone and benzodiazepine in the patient's blood stream. The patient was admitted to the ICU and monitored closely. Eventually, the patient's mental status improved. The patient stated that she did not remember what led up to her ending up in the hospital. She did admit that she has issues with anxiety and depression. Adjustments were made to the patient's antihypertensive regimen as well. The patient was noted to have a hemoglobin A1c of 6. She was given the diagnosis of pre diabetes. The patient was placed on a diabetic diet and encouraged to lose weight and to start exercising. [facility] was consulted and the patient had a discussion with the care support representative. The patient will be following up with the mental health clinic upon discharge. DISCHARGE MEDICATIONS: 1. Valium 5 mg oral twice a day. 2. Trintellix 10 mg p.o. daily. 3. Norvasc 5 mg oral daily. 4. Gabapentin 600 mg oral three times a day. 5. Pravachol 20 mg p.o. daily. DISCHARGE DIET: Low-sodium 1800 ADA diet. ACTIVITY: As tolerated. FOLLOWUP INSTRUCTIONS: The patient will need to follow up with Dr. Jovanny Rondon in 1 week. cc: Gin Harris MD
== END 2018-09-12 18:33 | disposition home or self-care (01) | DRG 917 ==
LOC: ED 14:36 → EDIPHOLD 23:44 → SUATTDRO 23:44 → ICU 09-08 16:30 → 3N 09-10 12:10
PROVIDERS: ATTEND Internal Medicine
CPT/HCPCS: 70450; 72125; 73110; 80048; 80053; 80101; 80301; 80307; 80324; 80345; 80346; 80353; 80358; 80361; 80365; 81001; 82948; 83036; 83735; 83992; 85025; 85027; 96361; 96372; 96374; 96375; 96376; 97116; 97162; 97530; 99285; 99291; A9270; G0431; G0434; G0479; G0480; J1650; J2060; J2405; J3486; J7030; XXXXX

== ENCOUNTER 2019-04-22 19:10 | Inpatient (IN) ==
--- NOTE | 2019-04-22 19:42 | EKG Report ---
Test Performed on : 04/22/2019 7:22:13 PM Test Reason : FALL Blood Pressure : / mmHG Vent. Rate : 082 BPM Atrial Rate : 082 BPM P-R Int : 134 ms QRS Dur : 092 ms QT Int : 416 ms P-R-T Axes : 046 032 073 degrees QTc Int : 486 ms Normal sinus rhythm. Normal ECG When compared with ECG of 27-APR-2018 12:31, No significant change was found Unconfirmed Result
[2019-04-22] MEDS ORDERED: NS 1,000 ML IV ONE (20:13)
--- NOTE | 2019-04-22 21:21 | Diag Imaging Result Doc PS360 ---
EXAM: SHOULDER-RIGHT HISTORY: fall with pain TECHNIQUE: Two views COMPARISON: None. FINDINGS: No fracture. No dislocation. IMPRESSION: No acute bony injury. Electronically signed by Dipesh Villalobos 04/22/2019 9:18 PM
[2019-04-22 21:30] LABS: BASO% 0.4 % (0.0-0.8); EOS# 0.36 X1000 (0.0-0.7); EOS% 6.6 % (0.0-10.0); HEMATOCRIT 34.3 % (37.0-47.0); HEMOGLOBIN 10.6 g/dL (12.0-16.0); LYMPH# 1.48 X1000 (1.2-3.4); LYMPH% 27.2 % (20.5-51.1); MCH 29.8 PG (27-31); MCHC 30.9 g/dL (33-37); MCV 96.3 FL (81-99); MONO# 0.59 X1000 (0.11-0.59); MONO% 10.8 % (1.7-9.3); MPV 10.2 FL (7.4-10.4); PLT 229 X1000 (130-400); RBC 3.56 XMIL (4.2-5.4); RDW 14.7 % (11.5-14.5); WBC 5.45 X1000 (4.8-10.8)
[2019-04-22 21:31] LABS: BASO# 0.02 X1000 (0.0-0.2)
[2019-04-22 21:48] LABS: CALCIUM 9.6 mg/dL (8.8-10.2); CREATININE 1.1 mg/dL (0.5-0.9); POTASSIUM 4.1 mmol/L (3.5-5.1)
--- NOTE | 2019-04-22 21:56 | EKG Report ---
Test Performed on : 04/22/2019 8:37:59 PM Test Reason : AMS Blood Pressure : / mmHG Vent. Rate : 071 BPM Atrial Rate : 071 BPM P-R Int : 152 ms QRS Dur : 086 ms QT Int : 430 ms P-R-T Axes : 010 027 003 degrees QTc Int : 467 ms Normal sinus rhythm. Normal ECG When compared with ECG of 22-APR-2019 19:22, (Unconfirmed) T wave inversion now evident in Inferior leads Unconfirmed Result
[2019-04-22 22:03] LABS: URINE SOURCE CLEAN CATCH
[2019-04-22 22:09] LABS: BILIRUBIN URINE NEGATIVE (NEGATIVE); BLOOD URINE NEGATIVE (NEGATIVE); COLOR YELLOW; GLUCOSE URINE NEGATIVE (NEGATIVE); KETONE URINE NEGATIVE (NEGATIVE); LEUKOCYTES URINE NEGATIVE (NEGATIVE); NITRITE URINE NEGATIVE (NEGATIVE); PH URINE 5.5; PROTEIN URINE TRACE mg/dL (NEGATIVE); TURBIDITY URINE HAZY (CLEAR); UROBILINOGEN URINE 3 mg/dL (NORMAL)
[2019-04-22 22:11] LABS: UR EPITHELIAL CELLS <10 /HPF (<10); URINE BACTERIA NEGATIVE /HPF; URINE RBC <10 /HPF (<10); URINE WBC <10 /HPF (<10)
[2019-04-22 22:34] LABS: URINE CASTS NONE SEEN; URINE CRYSTALS CA OXALATE PRESENT; URINE SMALL ROUND CELLS NONE SEEN; URINE YEAST PRESENT
[2019-04-22] MEDS ORDERED: LEVAQUIN 500 MG/D5W 500 MG/100 ML IVPB IV ONE (23:07)
--- NOTE | 2019-04-22 23:48 | PROVIDER DOCUMENTATION ---
This chart was entered by Brittni Welch Scribe, acting as scribe for Felicia Scott MD. HPI-Musculoskeletal Pain/Inj - GENERAL Chief Complaint: Fall Stated Complaint: FALLS/CONFUSION, BACK PAIN Time Seen by Provider: 04/22/19 20:02 Source: patient - HX OF PRESENT ILLNESS-MUSKULOSKELTAL Nature of Presenting Problem: Pt is a 74 yof who presents to the ED after fall that occurred yesterday evening. Pt states that she tripped over a bucket and fell on her R shoulder. Pt reports chronic back pain and states that it has worsened since the fall. Pt states that she was ambulatory after fall and pulled her self up. Pt states that she is "doing fine now." Pt son states that the pt has been extremely confused since and has a hx of taking too many prescription pain meds. states he found pt moving her stove around the kitchen and reporting that there was water on the floor when there was no water. States she has been confused like this in the past when she has taken too many of her meds and when she has had an infection. Quality of Pain: reports: aching Severity in ED: mild Onset/Duration: 24 hours ago Timing: still present Modifying Factors: improves with: nothing Any recent injury?: Yes Locality of Occurance: Home Similar Symptoms Previously?: Yes Recently seen or treated by another doctor?: No - FALL INJURY Location of Pain/Injury: reports: upper extremity (R shoulder), back (lower back, pt has hx of chronic back pain), other (L hip) Reason for Fall: reports: tripped Symptoms prior to fall:: reports: none Loss of Consciousness: no loss of consciousness Injury Associated Symptoms: reports: back/neck pain - BACK & NECK PAIN/INJURY Context / Method of Injury: reports: fall Associated Symptoms: reports: lower back pain History of Chronic Neck or Back Pain?: Yes - HIP/PELVIS PAIN/INJURY Hip Pain Location: reports: hip (L) Context / Method of Injury: reports: fall Associated Symptoms: reports: lower back pain - UPPER EXTREMITY PAIN/INJURY Extremities Pain Location: shoulder: right Context / Method of Injury: reports: fell Associated Symptoms: reports: denies symptoms Review of Systems - Adult - REVIEW OF SYSTEMS - ADULT ROS:: ROS per family Constitutional: reports: see HPI Eyes: reports: no symptoms reported Ears, Nose, Mouth & Throat: reports: no symptoms reported Cardiovascular: reports: no symptoms reported Respiratory: reports: no symptoms reported Gastrointestinal: reports: see HPI Genitourinary: reports: no symptoms reported Musculoskeletal: reports: see HPI, back pain (chronic back pain), other (R shoulder tenderness) Integumentary: reports: no symptoms reported Neurological: reports: see HPI, other (Pt son states that the pt is extremely confused.) Psychiatric: reports: no symptoms reported Endocrine: reports: no symptoms reported Hematologic/Lymphatic: reports: no symptoms reported Allergic/Immunologic: reports: no symptoms reported All Other Systems: Reviewed and Negative Past History - Adult - PAST MEDICAL HISTORY-ADULT Review of Records: reports: Old Records Reviewed, Nursing Assessment Review, Medications Reviewed, Social history reviewed & non-contributory. Major Childhood Illnesses: reports: denies history Cardiovascular: reports: blood clots, HTN, heart valve problem (MVP), hyperlipidemia Respiratory: reports: denies history Gastrointestinal: reports: GERD Obstetrical/Gynecological: reports: denies history Genitourinary: reports: denies history Musculoskeletal: reports: chronic pain (neck), fibromyalgia, intervertebral disc disease, neck/back injury, other (scoliosis) Neurological: reports: denies history, Seizures/Epilepsy Psychiatric: reports: anxiety, depression Endocrine/Immune: reports: denies history Other Conditions: reports: denies history - PRIOR SURGERIES/PROCEDURES Surgical/Procedure History: reports: appendectomy, cholecystectomy, hysterectomy , orthopedic (extremity) (right shoulder; carpal tunnel), back/neck (neck fusion and back Sx) - PRIOR HOSPITALIZATIONS Prior Hospitalizations: reports: for other non-related - IMMUNIZATION STATUS Childhood Immunizations: See Nurse Assessment Flu Vaccine: See Nurse Assessment - FAMILY HISTORY Family History: reviewed, not pertinent - SOCIAL HISTORY Smoking: non-smoker Substance Use: denies Living Situation: family Physical Exam-Injury Related - Physical Exam-Injury Related Initial Vital Signs Reviewed: Yes General Appearance: alert, no apparent distress Eyes: PERRL/EOMI, pink conjunctivae Head, Ears, Nose, Mouth & Throat: normocephalic/atraumatic, moist mucous membranes Neck: non-tender, full range of motion, normal inspection. negative: vertebral point tenderness Respiratory: chest non-tender, lungs clear, normal breath sounds, no respiratory distress, no accessory muscle use. negative: crackles, wheezing Cardiovascular: normal peripheral pulses, regular rate, rhythm, no edema, no gallop, no JVD, no murmur. negative: bradycardia, tachycardia Abdominal Exam: soft, tenderness (LLQ) Back Exam: negative: normal inspection Extremity: normal range of motion, tenderness (R shoulder tenderness). negative: non-tender, normal inspection Integumentary: normal color, warm/dry. negative: ecchymosis, swelling Neurologic: grossly normal, no motor/sensory deficits Psych/Mental Status: normal mood/affect, other (oriented to self, confused as to details of events and place. moves all extremities equally) - Glascow Coma Score Best Eye Response (Mary): (4) open spontaneously Best Verbal Response ([place]): (4) confused conversation Best Motor Response (Mary): (6) obeys commands Mary Total: 14 Progress - PLAN OF CARE/RESULTS Progress/Plan/Lab Results: Vital Signs - 8 hr 04/22/19 19:14 04/22/19 19:31 Temperature 98.4 F Pulse Rate 81 Respiratory Rate 18 Blood Pressure 88/58 O2 Sat by Pulse Oximetry 91 L 99 Laboratory Results - last 24 hr 04/22/19 04/22/19 04/22/19 20:52 20:52 20:52 WBC 5.45 RBC 3.56 L Hgb 10.6 L Hct 34.3 L MCV 96.3 MCH 29.8 MCHC 30.9 L RDW Std Deviation 14.7 H Plt Count 229 MPV 10.2 Immature Gran % (Auto) 0.0 Neut % (Auto) 55.0 Lymph % (Auto) 27.2 [place] % (Auto) 10.8 H Eos % (Auto) 6.6 Baso % (Auto) 0.4 Immature Gran # (Auto) 0.00 Neut # (Auto) 3.00 Lymph # (Auto) 1.48 Mclean # (Auto) 0.59 Eos # (Auto) 0.36 Baso # (Auto) 0.02 Sodium 140 Potassium 4.1 Chloride 102 Carbon Dioxide 29 Anion Gap 9 BUN 18 Creatinine 1.1 H Estimated GFR/1.73 m2 49 BUN/Creatinine Ratio 16 Glucose 112 H Calculated Osmolality 282 Calcium 9.6 Troponin T High Sens 19 Urine Source Urine Color Urine Turbidity Urine pH Ur Specific [place] Urine Protein Ur Glucose (Stick) Ur Ketones (Stick) Urine Blood Urine Nitrite Urine Bilirubin Urobilinogen Dipstick Urine Leukocytes Urine WBC (Auto) Urine RBC (Auto) U Epithel Cells (Auto) Urine Bacteria (Auto) Urine Crystals Small Round Cells Urine Casts Urine Yeast-like Cells 04/22/19 21:58 WBC RBC Hgb Hct MCV MCH MCHC RDW Std Deviation Plt Count MPV Immature Gran % (Auto) Neut % (Auto) Lymph % (Auto) [place]clean % (Auto) Eos % (Auto) Baso % (Auto) Immature Gran # (Auto) Neut # (Auto) Lymph # (Auto) [place]clean # (Auto) Eos # (Auto) Baso # (Auto) Sodium Potassium Chloride Carbon Dioxide Anion Gap BUN Creatinine Estimated GFR/1.73 m2 BUN/Creatinine Ratio Glucose Calculated Osmolality Calcium Troponin T High Sens Urine Source CLEAN CATCH Urine Color YELLOW Urine Turbidity HAZY Urine pH 5.5 Ur Specific [place] 1.030 Urine Protein TRACE A Ur Glucose (Stick) NEGATIVE Ur Ketones (Stick) NEGATIVE Urine Blood NEGATIVE Urine Nitrite NEGATIVE Urine Bilirubin NEGATIVE Urobilinogen Dipstick 3 A Urine Leukocytes NEGATIVE Urine WBC (Auto) <10 Urine RBC (Auto) <10 U Epithel Cells (Auto) <10 Urine Bacteria (Auto) NEGATIVE Urine Crystals CA OXALATE PRESENT Small Round Cells NONE SEEN Urine Casts NONE SEEN Urine Yeast-like Cells PRESENT Orders Category Date Time Status IV Insertion ORDERED Care 04/22/19 20:13 Completed Nursing- Obtain EKG ONCE Care 04/22/19 20:14 Active CHEST-2 VIEWS [RAD] Stat Exams 04/22/19 23:[address] ABD/PELVIS W/IV CONT ONLY [CT] Stat Exams 04/22/19 20:[address] HEAD W/O CONTRAST [CT] Stat Exams 04/22/19 20:13 Taken SHOULDER-RIGHT [RAD] Stat Exams 04/22/19 20:14 Completed ALCOHOL BLOOD Stat Lab 04/22/19 23:39 Ordered BASIC METABOLIC PANEL [CHEM] Stat Lab 04/22/19 20:52 Completed BLOOD CULTURE [BLDCUL] Stat Lab 04/22/19 23:06 Ordered CBC WITH DIFF [HEME] Stat Lab 04/22/19 20:52 Completed LACTATE, PLASMA [CHEM] Stat Lab 04/22/19 23:07 Uncollected TROPONIN T HIGH SENSITIVITY Stat Lab 04/22/19 20:52 Completed URINALYSIS W/POSS RFLX CULT [URINALYSIS] Stat Lab 04/22/19 21:58 Completed URINE DRUG SCREEN Stat Lab 04/22/19 23:39 Ordered URINE MANUAL MICROSCOPIC [URINALYSIS] Stat Lab 04/22/19 21:58 Completed 0.9% Sodium Chloride Inj [Ns] 1,000 ml Med 04/22/19 20:13 Discontinued IV 999 mls/hr Levofloxacin 500 mg/D5w [Levaquin 500 mg/D5w] Med 04/22/19 23:07 Active 500 mg in 100 ml IV NOW EKG [EKG] Stat Ther 04/22/19 19:23 Draft EKG [EKG] Stat Ther 04/22/19 20:13 Draft fall with confusion will further evaluate for underlying injuries and causes of confusion including but not limited to uti, pna, other infectious process, electrolyte imbalance, acs, cva, tia, Result Diagrams: 04/22/19 20:52 04/22/19 20:52 - REASSESSMENT Reassessment #1 Status: unchanged (continued confusion and PNA. No signs of sepsis. Treated with levaquin and will admit. Discussed case with Dr. Sands. Hospitalist, who will see and admit pt.) - EKG 1 Time of EKG reading by physician:: 19:30 EKG Read and Signed by:: Felicia Scott EKG Interpretation (*Must complete 3 of following elements*): Normal Rate: 82 Rhythm: NSR Cook: normal QRS: normal IN Interval: normal ST Wave: normal 2 Time of EKG reading by physician:: 20:37 EKG Read and Signed by:: Felicia Scott EKG Interpretation (*Must complete 3 of following elements*): Normal Rate: 71 Rhythm: NSR Cook: normal QRS: normal IN Interval: normal ST Wave: normal Prior EKG Comparison: unchanged from prior, changes noted - XRAY 1 XRAY: Right XRAY Study: Shoulder Impression: Normal, See EMR Report ( EXAM: SHOULDER-RIGHT HISTORY: fall with pain TECHNIQUE: Two views COMPARISON: None. FINDINGS: No fracture. No dislocation. IMPRESSION: No acute bony injury. Electronically signed by Dipesh Villalobos 04/22/2019 9:18 PM 04/22/192117 Interpreting Physician: Dipesh Villalobos MD Dictated Date/Time: 04/22/192117 cc: Felicia Limon MD; Jovanny Rondon MD) - CT/MRI 1 CT Study: Cervical Spine, Head Impression: Abnormal (No intracranial mass, midline shift, hydrocephalus, or acute hemorrhage Mild atrophy-like change Opacified left frontal and anterior ethmoid sinuses. Mastoids clear. The orbits are within normal limits No skull fracture No acute intracranial findings), See EMR Report Comparison with other Films: changes noted CT Results: Left sinus disease. Chronicity uncertain. This is new since the prior exam. 2 CT Study: Abdomen, Pelvis Impression: Abnormal, See EMR Report (2.....Non specific bowel gas pattern about fluid. Consider ileus. 3. Additional findings as above Findings: Ill-defined opacities of both lung bases could be atelectasis or early consolidation. No effusion. Cardiomegaly. Tiny left mid to upper renal cyst. Abdominal solid organs otherwise unremarkable. Cholecystectomy. Mesenteric vessels patent. Small left posterior lumbar hernia contains fat. No induration. No change. Mildly increased small bowel fluid nonspecific. Moderate to abundant stool proximally. No bowel obstruction. Appendix not identified. Hysterectomy. Left ovary unremarkable. Right ovary not identified. No fluid collections. Previous right sacroiliac fixation, L5 spine augmentation, T9 spine augmentation, and ultimately level thoracolumbar posterior stabilization hardware. Nonunion left posterior previous 10th rib fractus. No acute fracture or dislocation.) CT Results: Atelectasis versus consolidation at the lung bases....Cont in EMR report - CONSULTS/PCP/HOSPITALIST Notification #1 *Consult/PCP/Hospitalist*: Dr. Sands Time Discussed: 23:15 Consult Disposition: Admit (Accepts admission) Departure - Departure Date of Disposition Decision: 04/22/19 Time of Disposition Decision: 23:47 DIAGNOSIS: Confusion Pneumonia Qualifiers: Pneumonia type: due to unspecified organism Laterality: unspecified laterality Lung location: unspecified part of lung Qualified Code(s): J18.9 - Pneumonia, unspecified organism Fall Qualifiers: Encounter type: initial encounter Qualified Code(s): W19.XXXA - Unspecified fall, initial encounter Disposition: ADMITTED INPATIENT 09 Certified Medical Emergency: Emergent Condition: Good - Critical Care Note This patient required my direct & personal management of CC.: No Attestation - Physician/ ALLI Attestation Patient care was provided by Advanced Practice Provider:: No The physician spent face to face time with patient:: Yes Advanced Practice Provider documentation review:: Supervising physician onsite and consulted in the evaluation and care of this patient. The physician did have a face to face encounter with the patient. This chart was documented by the indicated scribe, (Brittni Welch Scribe) and accurately reflects the services I performed and decisions made by me, Felicia Hollingsworth MD, as attested by the provider's signature.
[2019-04-23 00:08] LABS: UR AMPHETAMINES QUAL NONE DETECTED (NONE DETECT); UR BARBITUATES QUAL NONE DETECTED (NONE DETECT); UR BENZODIAZEPIN QUAL PRESUMPTIVE POSITIVE (NONE DETECT); UR CANNABINOIDS QUAL NONE DETECTED (NONE DETECT); UR COCAINE QUAL NONE DETECTED (NONE DETECT); UR METHADONE QUAL PRESUMPTIVE POSITIVE (NONE DETECT); UR OPIATES QUAL NONE DETECTED (NONE DETECT); UR OXYCODONE QUAL PRESUMPTIVE POSITIVE (NONE DETECT); UR PCP QUAL NONE DETECTED (NONE DETECT)
[2019-04-23 01:07] LABS: ALB/GLOB RATIO 1.2; ALBUMIN 3.4 g/dL (3.5-5.0); DIRECT BILIRUBIN 0.1 mg/dL (0.00-0.20); TOTAL BILIRUBIN 0.2 mg/dL (0.20-1.00); TOTAL PROTEIN 6.3 g/dL (6.3-8.3)
[2019-04-23 01:07] LABS: ALLEN TEST YES; BE 2.9 mmoll (-3.0-3.0); BLOOD TYPE ARTERIAL; HCO3-(ACT) 27.2 mmoll (20.0-26.0); METHB 0.7 % (0.0-1.5); O2HB 94.8 % (95.0-99.0); PCO2(98.6) 44 mmHg (35-45); PO2(98.6) 68 mmHg (60-100); SAMPLE BLOOD; SAO2 98.4 % (95.0-100.0); THB 9.7 g/dL (11.5-17.4); pH(98.6) 7.41 (7.35-7.45)
[2019-04-23 01:08] LABS: MODALITY CANNULA
[2019-04-23 01:25] LABS: FREE T4 0.79 ng/dL (0.93-1.70)
[2019-04-23 01:27] LABS: TSH 5.8 uIUmL (0.27-4.20)
[2019-04-23 01:50] LABS: ACETAMINOPHEN 1.3 ug/mL (10-30); SALICYLATES < 3.00 mg/dL (3-10)
[2019-04-23] MEDS ORDERED: NS 1,000 ML IV SCH (04:15)
[2019-04-23] MEDS ORDERED: ZOFRAN IV PRN (04:20)
[2019-04-23] MEDS: TYLENOL PO PRN ×2 (06:52→22:30)
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
[2019-04-23] MEDS ORDERED: ATIVAN IV PRN (07:54)
--- NOTE | 2019-04-23 08:09 | Diag Imaging Result Doc PS360 ---
EXAM: CT HEAD W/O CONTRAST - 04/22/2019 HISTORY: AMS TECHNIQUE: CT head without contrast COMPARISON: 09/07/2018 FINDINGS: There is no evidence of intracranial hemorrhage, mass effect, midline shift, or hydrocephalus. There are mild atrophic changes similar to prior. There is no evidence of infarct, although acute infarcts may not be immediately visible. There is no evidence of skull fracture. There is paranasal sinus disease at the frontal sinus and anterior ethmoids on the left. IMPRESSION: No visible acute intracranial abnormality. There is paranasal sinus disease noted at the frontal sinuses and anterior ethmoids on the left. The on-call radiologist provided preliminary results at 10:55 PM on 04/22/2019. This exam was performed using automated exposure control, adjustment of mA or kV according to patient size, and/or use of iterative reconstruction technique. Electronically signed by Francis Tatum 04/23/2019 8:06 AM
--- NOTE | 2019-04-23 08:16 | Diag Imaging Result Doc PS360 ---
EXAM: CT ABD/PELVIS W/IV CONT ONLY - 04/22/2019 HISTORY: fall with abdominal pain TECHNIQUE: CT abdomen/pelvis with intravenous contrast COMPARISON: 03/20/2019 CT abdomen without contrast FINDINGS: There is mild cardiomegaly. There is dependent atelectasis plus or minus mild infiltrates at the bilateral lung bases. There are no substantial abnormalities of the liver, spleen, adrenal glands, or pancreas identified. The gallbladder surgically absent. The bilateral kidneys enhance homogeneously. There is no hydronephrosis. There are no substantially enlarged lymph nodes identified. There are postsurgical changes with metallic hardware noted at the spine and right sacroiliac region. There is no evidence of bowel obstruction. There is some retained fluid in small bowel and right colon. There is mild colonic diverticulosis. There is no evidence of diverticulitis. There is no substantial bowel wall thickening identified. There is no free air or abscess identified. There are postsurgical changes of partial hysterectomy. There is no abnormal pelvic mass or fluid collection identified. IMPRESSION: Dependent atelectasis plus or minus mild infiltrates at bilateral lung bases. Some retained fluid in small bowel and colon, possibly related to mild ileus. No evidence of bowel obstruction. Mild colonic diverticulosis. No evidence of diverticulitis. No abscess. No free air. The on-call radiologist provided preliminary results at 11:01 PM on 04/22/2019. This exam was performed using automated exposure control, adjustment of mA or kV according to patient size, and/or use of iterative reconstruction technique. Electronically signed by Francis Tatum 04/23/2019 8:13 AM
[2019-04-23] MEDS: GEODON IM PRN ×2 (08:21→22:38)
[2019-04-23] MEDS ORDERED: STERILE WATER INJ. ONE ×2 (08:33→22:51)
--- NOTE | 2019-04-23 09:09 | Diag Imaging Result Doc PS360 ---
EXAM: CHEST-2 VIEWS - 04/22/2019 HISTORY: Poss. PNA noted on Abd/Pelvis CT TECHNIQUE: Chest two views COMPARISON: 03/20/2020 view chest FINDINGS: Heart size is borderline prominent. There is subsegmental atelectasis at the lung bases. There is apparently a small infiltrate at the lateral left lower lung. There is no other consolidation, pleural effusion, or pneumothorax identified. IMPRESSION: Mild basilar atelectasis. Apparent small infiltrate at lateral left lower lung. Follow-up is recommended. Electronically signed by Francis Tatum 04/23/2019 9:07 AM
--- NOTE | 2019-04-23 09:39 | EKG Report ---
Test Performed on : 04/23/2019 09:17:31 AM Test Reason : multiple QT prolonging medicines Blood Pressure : / mmHG Vent. Rate : 075 BPM Atrial Rate : 075 BPM P-R Int : 146 ms QRS Dur : 094 ms QT Int : 446 ms P-R-T Axes : 053 038 066 degrees QTc Int : 498 ms Normal sinus rhythm. Prolonged QT Abnormal ECG When compared with ECG of 22-APR-2019 20:37, (Unconfirmed) T wave inversion no longer evident in Inferior leads Confirmed by Alysia Martel MD ([id number]) on 04/24/2019 5:30:01 PM
[2019-04-23 10:01] LABS: BASO# 0.02 X1000 (0.0-0.2); BASO% 0.6 % (0.0-0.8); EOS% 9.6 % (0.0-10.0); HEMATOCRIT 31.7 % (37.0-47.0); HEMOGLOBIN 9.8 g/dL (12.0-16.0); LYMPH# 1.06 X1000 (1.2-3.4); LYMPH% 33.9 % (20.5-51.1); MCH 29.5 PG (27-31); MCHC 30.9 g/dL (33-37); MCV 95.5 FL (81-99); MONO# 0.52 X1000 (0.11-0.59); MONO% 16.6 % (1.7-9.3); MPV 10.1 FL (7.4-10.4); NEUT# 1.23 X1000 (1.4-6.5); NEUT% 39.3 % (42.2-75.2); PLT 223 X1000 (130-400); RBC 3.32 XMIL (4.2-5.4); RDW 14.6 % (11.5-14.5); WBC 3.13 X1000 (4.8-10.8)
[2019-04-23] MEDS: DUONEB (A & A) INH PRN ×2 (10:34→16:12)
[2019-04-23 10:35] LABS: CALCIUM 8.6 mg/dL (8.8-10.2); POTASSIUM 3.6 mmol/L (3.5-5.1)
--- NOTE | 2019-04-23 11:49 | Diag Imaging Result Doc PS360 ---
EXAM: ABDOMEN FLAT/UPRIGHT - 04/23/2019 HISTORY: Recheck Poss. Ileus noted on CT Abd/Pelvis TECHNIQUE: Portable supine and upright abdomen COMPARISON: 03/20/2019 radiographs, 04/22/2019 CT abdomen/pelvis FINDINGS: Bowel gas pattern appears nonspecific and nonobstructive. There is no free air identified. There are surgical clips at the right upper quadrant. IMPRESSION: Nonspecific bowel gas pattern. Electronically signed by Francis Tatum 04/23/2019 11:47 AM
[2019-04-23] MEDS ORDERED: SEROQUEL PO PRN (12:18)
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
[2019-04-23] MEDS: MIRALAX PO SCH (17:50)
[2019-04-23] MEDS: COLACE PO SCH ×2 (17:51→21:18)
[2019-04-24] MEDS ORDERED: SYNTHROID PO SCH (07:00)
[2019-04-24 07:39] LABS: BASO# 0.03 X1000 (0.0-0.2); BASO% 0.9 % (0.0-0.8); EOS# 0.23 X1000 (0.0-0.7); EOS% 7.1 % (0.0-10.0); HEMATOCRIT 33.4 % (37.0-47.0); HEMOGLOBIN 10.5 g/dL (12.0-16.0); LYMPH# 1.49 X1000 (1.2-3.4); MCH 30.3 PG (27-31); MCHC 31.4 g/dL (33-37); MCV 96.5 FL (81-99); MONO# 0.48 X1000 (0.11-0.59); MONO% 14.8 % (1.7-9.3); MPV 10.3 FL (7.4-10.4); NEUT# 1.01 X1000 (1.4-6.5); NEUT% 31.2 % (42.2-75.2); PLT 219 X1000 (130-400); RBC 3.46 XMIL (4.2-5.4); RDW 15.1 % (11.5-14.5); WBC 3.24 X1000 (4.8-10.8)
[2019-04-24 08:06] LABS: CALCIUM 8.4 mg/dL (8.8-10.2); POTASSIUM 4.4 mmol/L (3.5-5.1)
[2019-04-24] MEDS ORDERED: STERILE WATER INJ. INJ PRN (08:30)
[2019-04-24] MEDS ORDERED: PRAVACHOL PO SCH (09:00)
[2019-04-24] MEDS: MIRALAX PO SCH (09:10)
[2019-04-24] MEDS: COLACE PO SCH (09:10)
[2019-04-24 11:09] LABS: FREE T4 0.76 ng/dL (0.93-1.70); TSH 3.26 uIUmL (0.27-4.20)
[2019-04-24 11:30] VITALS: BP 144/64
[2019-04-25] MEDS ORDERED: LEVAQUIN 750 MG/D5W 750 MG/150 ML IVPB IV SCH (00:30)
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
== END 2019-04-24 15:57 | disposition home or self-care (01) | DRG 917 ==
LOC: ED 19:10 → SUATTDRO 04-23 01:20 → 3N 04-23 01:20
PROVIDERS: ATTEND Internal Medicine